=== PATIENT | female | born 1935 | race Caucasian/White ===

== ENCOUNTER 2016-05-06 17:44 | Emergency (ER) | payer MEDICARE ==
[2016-05-06] MEDS ORDERED: ALBUTEROL/IPRATROPIUM 1 VIAL SOL INH ONE ×2 (18:02→18:20)
[2016-05-06 18:03] VITALS: TEMP 97.7
[2016-05-06] MEDS ORDERED: ALBUTEROL/IPRATROPIUM 1 VIAL SOL ONE ×2 (18:03→18:29)
[2016-05-06 18:42] VITALS: PULSE 106; RESP 18; O2SAT 93
[2016-05-06 19:04] VITALS: BP 146/78
== END 2016-05-06 19:00 | disposition home or self-care (01) | DRG 192 ==
LOC: ED 17:44
DX: J44.1 Chronic obstructive pulmonary disease with (acute) exacerbation (principal)
CPT/HCPCS: 71020; 99283; 99284; J7620

== ENCOUNTER 2018-09-10 12:31 | Outpatient (CLI) | payer MEDICARE ==
[2017-05-12 16:11] VITALS: O2SAT 90
== END 2018-09-10 12:32 | disposition home or self-care (01) | DRG 556 ==
LOC: CONVCARE 12:31
PROVIDERS: ATTEND Orthopaedic Surgery
DX: M25.551 Pain in right hip (principal)
CPT/HCPCS: 73502